=== PATIENT | male | born 1995 ===

== ENCOUNTER 2018-12-03 07:55 | Emergency (ER) | payer SELFPAY ==
[2018-12-03 07:59] VITALS: BMI 25.3
[2018-12-03 08:01] VITALS: O2SAT 99
--- NOTE | 2018-12-03 08:28 | C.PDOC ---
Time Seen by Provider: 12/03/18 08:04 Chief Complaint (Nursing): Finger,Hand,&Wrist Past Medical History Vital Signs: Last Vital Signs Temp 98.3 F 12/03/18 07:59 Pulse 70 12/03/18 07:59 Resp 18 12/03/18 07:59 BP 126/85 12/03/18 07:59 Pulse Ox 99 12/03/18 07:59 - Social History Hx Alcohol Use: Yes Hx Substance Use: No - Immunization History Hx Tetanus Toxoid Vaccination: No Hx Influenza Vaccination: No Hx Pneumococcal Vaccination: No ED Course And Treatment O2 Sat by Pulse Oximetry: 99 Disposition - Disposition
--- NOTE | 2018-12-03 08:29 | C.PDOC ---
History Of Present Illness 23 years old male presents to ED for complaints of pain to the medial aspect of right wrist that began 2 weeks ago. Patient reports pain worsens when he carries heavy objects at work sometimes. Denies specific injuries, falls, radiation of pain, or any other physical complaints. Time Seen by Provider: 12/03/18 08:04 Chief Complaint (Nursing): Finger,Hand,&Wrist History Per: Patient History/Exam Limitations: no limitations Onset/Duration Of Symptoms: Hrs Current Symptoms Are (Timing): Still Present Exacerbating Factor(s): Other (Carrying heavy objects ) Recent travel outside of the [place]: No Past Medical History Reviewed: Historical Data, Nursing Documentation, Vital Signs Vital Signs: Last Vital Signs Temp 98.3 F 12/03/18 07:59 Pulse 70 12/03/18 07:59 Resp 18 12/03/18 07:59 BP 126/85 12/03/18 07:59 Pulse Ox 99 12/03/18 08:28 - Medical History PMH: No Chronic Diseases Surgical History: No Surg Hx Family History: States: No Known Family Hx - Social History Hx Alcohol Use: Yes Hx Substance Use: No - Immunization History Hx Tetanus Toxoid Vaccination: No Hx Influenza Vaccination: No Hx Pneumococcal Vaccination: No Review Of Systems Constitutional: Negative for: Fever, Chills Gastrointestinal: Negative for: Nausea, Vomiting, Diarrhea Musculoskeletal: Positive for: Other (Right Wrist Pain) Skin: Negative for: Rash Neurological: Negative for: Weakness, Numbness Physical Exam - Physical Exam Appears: Non-toxic, No Acute Distress, Other (Comfortable ) Skin: Normal Color, Warm, Dry, No Rash Chest: Symmetrical, No Tenderness Cardiovascular: Rhythm Regular, No Murmur Respiratory: Normal Breath Sounds, No Rales, No Rhonchi, No Wheezing Extremity: Normal ROM, Tenderness (Mild to palpation of Distal and Medial aspect of right wrist. ), Capillary Refill (Less than 2 seconds ), No Deformity, No Swelling Extremity: Bilateral: Normal Color And Temperature, Normal ROM Pulses: Left Radial: Normal, Right Radial: Normal Neurological/Psych: Oriented x3, Normal Speech Gait: Steady ED Course And Treatment O2 Sat by Pulse Oximetry: 99 (RA) Pulse Ox Interpretation: Normal - Other Rad Wrist X-Ray X-Ray: Viewed By Me, Read By Radiologist Interpretation: Date of service: 12/03/2018. PROCEDURE: Right Wrist Radiographs. . HISTORY: right wrist pain. COMPARISON: None. TECHNIQUE: 4 views obtained. FINDINGS: BONES: Normal. No fracture. JOINTS: Normal. No dislocation. SOFT TISSUES: Normal. OTHER FINDINGS: None. IMPRESSION: No evidence of acute fracture or dislocation. Progress Note: Ordered Right Wrist X-Ray. Disposition Counseled Patient/Family Regarding: Studies Performed, Diagnosis, Need For Followup, Rx Given - Disposition Referrals: Earl Batres MD [Staff Provider] - Disposition: HOME/ ROUTINE Disposition Time: 08:55 Condition: STABLE Additional Instructions: FOLLOW UP WITH HAND SURGEON WITHIN 1 WEEK USE PAIN MEDICATION NEEDED RETURN TO EMERGENCY ROOM IF YOUR SYMPTOMS BECOME WORSE SEGUIR CON EL CIRUJANO DE MANO DENTRO DE 1 SEMANA UTILICE MEDICAMENTOS PARA EL DOLOR CARO SE NECESITE VUELVA A LA MICHAEL DE EMERGENCIA SI HEMA SNTOMAS SE HACEN PEOR Prescriptions: Naproxen 375 mg PO BID PRN #20 tablet PRN Reason: pain Instructions: Tendonitis (DC) Forms: [employer] (Amharic) Print Language: JORDANIAN - Clinical Impression Clinical Impression: Right wrist sprain, Tendonitis - 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 - Scribe Statement Tracy Jason All medical record entries made by the Scribe were at my direction and personally dictated by me. I have reviewed the chart and agree that the record accurately reflects my personal performance of the history, physical exam, medical decision making, and the department course for this patient. I have also personally directed, reviewed, and agree with the discharge instructions and disposition.
[2018-12-03 09:28] VITALS: BP 114/72; PULSE 60; RESP 20; TEMP 99.1
--- NOTE | 2018-12-03 11:16 | RAD ---
Date of service: 12/03/2018 PROCEDURE: Right Wrist Radiographs. HISTORY: right wrist pain COMPARISON: None. TECHNIQUE: 4 views obtained. FINDINGS: BONES: Normal. No fracture. JOINTS: Normal. No dislocation. SOFT TISSUES: Normal. OTHER FINDINGS: None. IMPRESSION: No evidence of acute fracture or dislocation.
== END 2018-12-03 09:27 | disposition home or self-care (01) ==
LOC: C.ER 07:55
DX: S63.501A Unspecified sprain of right wrist, initial encounter (principal); X58.XXXA Exposure to other specified factors, initial encounter; M77.9 Enthesopathy, unspecified